=== PATIENT | female | born 1990 | race Caucasian/White ===

== ENCOUNTER → 2018-06-29 | Outpatient (CLI) | payer OTHER ==
--- NOTE | 2018-06-29 11:36 | XR ---
EXAMINATION TYPE: XR wrist complete RT DATE OF EXAM: 06/29/2018 COMPARISON: NONE HISTORY: 28-year-old female right wrist pain TECHNIQUE: 4 views FINDINGS: Mild positive ulnar variance is demonstrated. Radiocarpal and distal radial ulnar joint as well as th e midcarpal compartment appear intact. There seems to be some mild soft tissue swelling at the wrist. No acute fracture, subluxation, or dislocation seen. IMPRESSION: 1. Incidental mild positive ulnar variance. This can predispose some patients to TFCC injury. 2. Mild soft tissue swelling about the wrist. No acute osseous abnormality seen.
== END ==
LOC: RADXRMAIN 11:07
PROVIDERS: ATTEND Emergency Medicine
DX: M79.89 Other specified soft tissue disorders (principal)

== ENCOUNTER → 2018-07-14 | Outpatient (CLI) | payer OTHER ==
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
== END ==
LOC: RADXRMAIN 14:23
PROVIDERS: ATTEND Emergency Medicine
DX: M65.831 Other synovitis and tenosynovitis, right forearm (principal); R20.9 Unspecified disturbances of skin sensation

== ENCOUNTER → 2018-09-18 | Outpatient (CLI) | payer OTHER ==
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
== END | disposition home or self-care (01) ==
LOC: RADXRMAIN 11:52
PROVIDERS: ATTEND Emergency Medicine
DX: S46.911A Strain of unspecified muscle, fascia and tendon at shoulder and upper arm level, right arm, initial encounter (principal)

== ENCOUNTER → 2018-09-24 | Outpatient (CLI) | payer OTHER ==
--- NOTE | 2018-09-28 10:07 | XR ---
EXAMINATION TYPE: XR cervical spine comp DATE OF EXAM: 09/24/2018 TECHNIQUE: Frontal, lateral, oblique, swimmers, and open mouth view of the cervical spine are obtaine d. HISTORY: M54.2 Neck pain COMPARISON: None FINDINGS: Mild disc space narrowing in marginal osteophytes at C4-5. Asymmetric mild right-sided minda ral foraminal narrowing at C4-5 and C5-6. The cervical spine is visualized in its entirety from C1 th ru the top of T1 level, it is satisfactory in alignment without evidence of acute fracture or disloca tion. The pre-vertebral soft tissue appears within normal limits. The C1-C2 articulation is within normal limits on the open mouth view. IMPRESSION: No acute fracture or dislocation. Cervical spondylosis at C4-5 and C5-6, greater on the right.
== END | disposition home or self-care (01) ==
LOC: RADXRMAIN 11:09
PROVIDERS: ATTEND Emergency Medicine
DX: M47.812 Spondylosis without myelopathy or radiculopathy, cervical region (principal)
CPT/HCPCS: 72050

== ENCOUNTER 2019-03-16 09:55 | Emergency (ER) | payer OTHER, BC ==
[2019-03-16 10:31] VITALS: RESP 18; TEMP 98.9
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
--- NOTE | 2019-03-16 13:21 | XR ---
EXAMINATION TYPE: XR lumbosacral spine min 4V DATE OF EXAM: 03/16/2019 CLINICAL HISTORY: pain COMPARISON: NONE TECHNIQUE: Frontal, lateral, and oblique images of the lumbar spine are obtained. FINDINGS: There are 5 lumbar type vertebral bodies identified. The lumbar spine shows satisfactory alignment without evidence of acute fracture or dislocation. Vertebral body heights are within normal limits. Disc spaces are well preserved. The overlying soft tissue appears unremarkable. IMPRESSION: No acute fracture or dislocation is seen in the lumbar spine.ICD 10 NO FRACTURE, INITIAL EVALUATION
[2019-03-16 13:37] VITALS: BP 131/71; PULSE 67
[2019-03-16] MEDS ORDERED: IBUPROFEN 600 MG TAB PO STA (13:47)
== END 2019-03-16 14:00 | disposition home or self-care (01) ==
LOC: EC 09:55
DX: S39.012A Strain of muscle, fascia and tendon of lower back, initial encounter (principal); Z88.1 Allergy status to other antibiotic agents; V49.9XXA Car occupant (driver) (passenger) injured in unspecified traffic accident, initial encounter; Y92.410 Unspecified street and highway as the place of occurrence of the external cause
CPT/HCPCS: 72110; 72125; 99284

== ENCOUNTER 2019-11-17 09:32 | Emergency (ER) | payer BC ==
[2019-11-17 09:44] VITALS: RESP 16
[2019-11-17] MEDS ORDERED: SODIUM CHLORIDE 0.9% 2,000 ML IV STA (10:11)
[2019-11-17] MEDS ORDERED: METOCLOPRAMIDE 5 MG/ML 2 ML VIAL IVP STA (10:11)
[2019-11-17] MEDS ORDERED: diphenhydrAMINE 50 MG/ML 1 ML VIAL IVP STA (10:11)
--- NOTE | 2019-11-17 10:15 | ED ---
Nausea/Vomiting/Diarrhea HPI - General Chief complaint: Nausea/Vomiting/Diarrhea Stated complaint: PREG DEHYDRATION Time Seen by Provider: 11/17/19 10:01 Source: patient, family, RN notes reviewed, old records reviewed Mode of arrival: wheelchair Limitations: no limitations - History of Present Illness Initial comments: Regina is a female 29 years old and presents emergency department today for concerns for nausea and vomiting dehydration dizziness. Patient reports that she's been having these episodes increasingly for the past few days. She states that she believes she is proximal 6 weeks based off last menstrual period Patient states that she's had no chest pain shortness of breath. Denies any vaginal bleeding or discharge. She does complain of dysuria. She states that she has no back pain or localized abdominal pain at this time. Her ASSOCIATE TEACHER is Dr. Elizondo. - Related Data Home Medications Medication Instructions Recorded Confirmed Escitalopram [Lexapro] 10 mg PO HS 11/17/19 11/17/19 Folate 1 tab PO HS 11/17/19 11/17/19 Omeprazole 20 mg PO HS 11/17/19 11/17/19 Pnv,Calcium 72/Iron/Folic Acid 1 tab PO HS 11/17/19 11/17/19 [ Plus Tablet] Previous Rx's Medication Instructions Recorded Cephalexin [Keflex] 500 mg PO Q6HR 3 Days #12 cap 11/17/19 Metoclopramide [Reglan] 10 mg PO ACHS #12 tab 11/17/19 Allergies Allergy/AdvReac Type Severity Reaction Status Date / Time azithromycin Allergy Nausea & Verified 11/17/19 11:39 Vomiting Review of Systems ROS Statement: Those systems with pertinent positive or pertinent negative responses have been documented in the HPI. ROS Other: All systems not noted in ROS Statement are negative. Past Medical History Additional Past Medical History / Comment(s): migraines anxiety and depression History of Any Multi-Drug Resistant Organisms: None Reported Past Surgical History: No Surgical Hx Reported Past Psychological History: Anxiety, Depression Smoking Status: Never smoker Past Alcohol Use History: None Reported Past Drug Use History: None Reported General Exam - General Exam Comments Initial Comments: 29-year-old female. Alert and oriented. No distress. Limitations: no limitations General appearance: alert, in no apparent distress Head exam: Present: atraumatic, normocephalic, normal inspection Eye exam: Present: normal appearance, PERRL, EOMI. Absent: scleral icterus, conjunctival injection, periorbital swelling ENT exam: Present: normal exam, mucous membranes moist Neck exam: Present: normal inspection. Absent: tenderness, meningismus, lymphadenopathy Respiratory exam: Present: normal lung sounds bilaterally. Absent: respiratory distress, wheezes, rales, rhonchi, stridor Cardiovascular Exam: Present: regular rate, normal rhythm, normal heart sounds. Absent: systolic murmur, diastolic murmur, rubs, gallop, clicks GI/Abdominal exam: Present: soft, normal bowel sounds. Absent: distended, tenderness, guarding, rebound, rigid Extremities exam: Present: normal inspection, full ROM, normal capillary refill. Absent: tenderness, pedal edema, joint swelling, calf tenderness Back exam: Present: normal inspection Neurological exam: Present: alert, oriented X3, CN II-XII intact Psychiatric exam: Present: normal affect, normal mood Skin exam: Present: warm, dry, intact, normal color. Absent: rash Course Vital Signs 11/17/19 09:42 Temperature 98.9 F Pulse Rate 70 Respiratory 16 Rate Blood Pressure 108/80 O2 Sat by Pulse 99 Oximetry Medical Decision Making - Medical Decision Making 29 -year-old female presents today for nausea and vomiting. Early and complains of dysuria. She has a some evidence of intrauterine measuring 5 weeks. Labs are reviewed and unremarkable. Patient feels better after 2 L bolus. We'll discharge Patient with close PCP follow-up. - Lab Data Result diagrams: 11/17/19 10:21 11/17/19 10:21 Lab Results 11/17/19 11/17/19 11/17/19 Range/Units 10:21 10:21 10:21 WBC 11.8 H (3.8-10.6) k/uL RBC 4.74 (3.80-5.40) m/uL Hgb 13.9 (11.4-16.0) gm/dL Hct 42.8 (34.0-46.0) % MCV 90.3 (80.0-100.0) fL MCH 29.3 (25.0-35.0) pg MCHC 32.5 (31.0-37.0) g/dL RDW 13.3 (11.5-15.5) % Plt Count 309 (150-450) k/uL Neutrophils % 81 % Lymphocytes % 13 % Monocytes % 4 % Eosinophils % 1 % Basophils % 0 % Neutrophils # 9.5 H (1.3-7.7) k/uL Lymphocytes # 1.5 (1.0-4.8) k/uL Monocytes # 0.5 (0-1.0) k/uL Eosinophils # 0.1 (0-0.7) k/uL Basophils # 0.0 (0-0.2) k/uL Sodium 136 L (137-145) mmol/L Potassium 4.4 (3.5-5.1) mmol/L Chloride 105 (98-107) mmol/L Carbon Dioxide 20 L (22-30) mmol/L Anion Gap 11 mmol/L BUN 12 (7-17) mg/dL Creatinine 0.84 (0.52-1.04) mg/dL Est GFR (CKD-EPI)AfAm >90 (>60 ml/min/1.73 sqM) Est GFR (CKD-EPI)NonAf >90 (>60 ml/min/1.73 sqM) Glucose 94 (74-99) mg/dL Calcium 9.6 (8.4-10.2) mg/dL Total Bilirubin 0.9 (0.2-1.3) mg/dL AST 79 H (14-36) U/L ALT 136 H (4-34) U/L Alkaline Phosphatase 82 (38-126) U/L Total Protein 7.7 (6.3-8.2) g/dL Albumin 4.5 (3.5-5.0) g/dL Lipase 31 (23-300) U/L HCG, Quant 43255.4 mIU/mL Urine Color Yellow Urine Appearance Cloudy H (Clear) Urine pH 6.0 (5.0-8.0) Ur Specific [place] 1.026 (1.001-1.035) Urine Protein 1+ H (Negative) Urine Glucose (UA) Negative (Negative) Urine Ketones 1+ H (Negative) Urine Blood Negative (Negative) Urine Nitrite Negative (Negative) Urine Bilirubin Negative (Negative) Urine Urobilinogen <2.0 (<2.0) mg/dL Ur Leukocyte Esterase Small H (Negative) Urine WBC 7 H (0-5) /hpf Ur Squamous Epith Cells 1 (0-4) /hpf Urine Bacteria Rare H (None) /hpf Urine Mucus Many H (None) /hpf Urine HCG, Qual (Not Detectd) Blood Type Blood Type Recheck Bld Type Recheck Status 11/17/19 11/17/19 Range/Units 10:21 10:21 WBC (3.8-10.6) k/uL RBC (3.80-5.40) m/uL Hgb (11.4-16.0) gm/dL Hct (34.0-46.0) % MCV (80.0-100.0) fL MCH (25.0-35.0) pg MCHC (31.0-37.0) g/dL RDW (11.5-15.5) % Plt Count (150-450) k/uL Neutrophils % % Lymphocytes % % Monocytes % % Eosinophils % % Basophils % % Neutrophils # (1.3-7.7) k/uL Lymphocytes # (1.0-4.8) k/uL Monocytes # (0-1.0) k/uL Eosinophils # (0-0.7) k/uL Basophils # (0-0.2) k/uL Sodium (137-145) mmol/L Potassium (3.5-5.1) mmol/L Chloride (98-107) mmol/L Carbon Dioxide (22-30) mmol/L Anion Gap mmol/L BUN (7-17) mg/dL Creatinine (0.52-1.04) mg/dL Est GFR (CKD-EPI)AfAm (>60 ml/min/1.73 sqM) Est GFR (CKD-EPI)NonAf (>60 ml/min/1.73 sqM) Glucose (74-99) mg/dL Calcium (8.4-10.2) mg/dL Total Bilirubin (0.2-1.3) mg/dL AST (14-36) U/L ALT (4-34) U/L Alkaline Phosphatase (38-126) U/L Total Protein (6.3-8.2) g/dL Albumin (3.5-5.0) g/dL Lipase (23-300) U/L HCG, Quant mIU/mL Urine Color Urine Appearance (Clear) Urine pH (5.0-8.0) Ur Specific [place] (1.001-1.035) Urine Protein (Negative) Urine Glucose (UA) (Negative) Urine Ketones (Negative) Urine Blood (Negative) Urine Nitrite (Negative) Urine Bilirubin (Negative) Urine Urobilinogen (<2.0) mg/dL Ur Leukocyte Esterase (Negative) Urine WBC (0-5) /hpf Ur Squamous Epith Cells (0-4) /hpf Urine Bacteria (None) /hpf Urine Mucus (None) /hpf Urine HCG, Qual Detected (Not Detectd) Blood Type O Positive Blood Type Recheck No Previous Record Bld Type Recheck Status [facility] ONLY - Radiology Data Radiology results: report reviewed Live single intrauterine gestation confirmed with crown-rump length measuring 0.2 cm with 5 week 5-day-old fetus. Disposition Clinical Impression: Nausea & vomiting, Asymptomatic bacteriuria during Disposition: HOME SELF-CARE Condition: Good Instructions (If sedation given, give patient instructions): Acute Nausea and Vomiting (ED) Additional Instructions: Please use medication as discussed. Please follow up with family doctor if symptoms have not improved over the next two days. Please return to the emergency room if your symptoms increase or worsen or for any other concerns. Prescriptions: Cephalexin [Keflex] 500 mg PO Q6HR 3 Days #12 cap Metoclopramide [Reglan] 10 mg PO ACHS #12 tab Is patient prescribed a controlled substance at d/c from ED?: No Referrals: Chris Thao MD [Primary Care Provider] - 1-2 days Time of Disposition: 12:12
[2019-11-17 10:48] LABS: Basophils % (A) 0 %; Eosinophils # (A) 0.1 k/uL (0-0.7); Eosinophils % (A) 1 %; HCT 42.8 % (34.0-46.0); HGB 13.9 gm/dL (11.4-16.0); Lymphocytes # (A) 1.5 k/uL (1.0-4.8); Lymphocytes % (A) 13 %; MCH 29.3 pg (25.0-35.0); MCHC 32.5 g/dL (31.0-37.0); MCV 90.3 fL (80.0-100.0); Monocytes # (A) 0.5 k/uL (0-1.0); Monocytes % (A) 4 %; Neutrophils # (A) 9.5 k/uL (1.3-7.7); Neutrophils % (A) 81 %; Platelet Count 309 k/uL (150-450); RBC 4.74 m/uL (3.80-5.40); RDW 13.3 % (11.5-15.5); WBC 11.8 k/uL (3.8-10.6)
[2019-11-17 10:50] LABS: Appearance,Urine Cloudy (Clear); Bacteria,Urine Rare /hpf; Bilirubin,Urine Negative (Negative); Blood,Urine Negative (Negative); Color,Urine Yellow; Glucose,Urine (UA) Negative (Negative); Ketones,Urine 1+ (Negative); Leukocyte Esterase,Urine Small (Negative); Mucus,Urine Many /hpf; Nitrite,Urine Negative (Negative); Protein,Urine 1+ (Negative); Specific Gravity,Urine 1.026 (1.001-1.035); Squamous Epithelial Cell,Urine 1 /hpf (0-4); Urobilinogen,Urine <2.0 mg/dL (<2.0); WBC,Urine 7 /hpf (0-5)
[2019-11-17 10:56] LABS: ALT 136 U/L (4-34); AST 79 U/L (14-36); African American GFR (CKD) >90 (>60 ml/min/1.73 sqM); Albumin 4.5 g/dL (3.5-5.0); Alkaline Phosphatase 82 U/L (38-126); Anion Gap 11 mmol/L; Blood Urea Nitrogen 12 mg/dL (7-17); Calcium 9.6 mg/dL (8.4-10.2); Carbon Dioxide 20 mmol/L (22-30); Chloride 105 mmol/L (98-107); Glucose 94 mg/dL (74-99); Non-African American GFR(CKD) >90 (>60 ml/min/1.73 sqM); Potassium 4.4 mmol/L (3.5-5.1); Sodium 136 mmol/L (137-145); Total Bilirubin 0.9 mg/dL (0.2-1.3); Total Protein 7.7 g/dL (6.3-8.2)
--- NOTE | 2019-11-17 11:30 | US ---
EXAMINATION TYPE: Transabdominal DATE OF EXAM: 11/17/2019 11:20 AM COMPARISON: NONE CLINICAL HISTORY: early preg, nausea, vom. Positive beta-hCG test with pain. EXAM PERFORMED: Transvaginal (TV) and Transabdominal (TA) EXAM MEASUREMENTS: GESTATIONAL AGE / DATING Physician Established: Not yet established Dates by LMP: not applicable Dates by First Scan: No previous this is first scan Dates by Current Scan for: (5 weeks/5 days) EDC: 07/15/19 MATERNAL ANATOMY Uterus: 7.9 x 4.8 x 4.9cm Right Ovary: 3.6 x 2.8 x 2.3cm Left Ovary: obscured by overlying bowel gas Post CDS / Adnexa: wnl Presence of free fluid: no Presence of corpus luteal cyst: 1.9 x 1.4 x 1.5cm Presence of subchorionic bleed: no GESTATION / SURVEY CRL: 0.2cm (5 weeks/ 5 days) Yolk Sac (normal less than 6mm): 2mm Heart Rate: 120 bpm Rhythm: Normal IUP: Viable IUP Date of LMP: 08/15/19 Beta HcG (if available): Not available at this time Single live intrauterine gestation is confirmed as gestational sac, yolk sac, and pole are pres ent. No free fluid in pelvic cul-de-sac. Right ovary identified. Left ovary not clearly seen. Within the right ovary there is a 1.5 cm isoecho ic oval lesion with vascularity suspicious for corpus luteal cyst. No concerning extra ovarian adnexa l masses. IMPRESSION: Early single live intrauterine gestation confirmed, mean crown-rump length is 0.2 cm corresponding to 5 week 5 day old fetus
[2019-11-17 11:54] LABS: HCG,Quantitative Serum 32586.4 mIU/mL
[2019-11-17 12:37] VITALS: BP 113/69; PULSE 63; TEMP 98.6
== END 2019-11-17 12:41 | disposition home or self-care (01) ==
LOC: EC 09:32
DX: O21.9 Vomiting of pregnancy, unspecified (principal); O23.91 Unspecified genitourinary tract infection in pregnancy, first trimester; O99.341 Other mental disorders complicating pregnancy, first trimester; F32.9 Major depressive disorder, single episode, unspecified; F41.9 Anxiety disorder, unspecified; Z79.899 Other long term (current) drug therapy; Z3A.01 Less than 8 weeks gestation of pregnancy; Z88.1 Allergy status to other antibiotic agents
CPT/HCPCS: 36415; 86900; 86901; 80053; 83690; 85025; 81001; 81025; 84702; 76801; 76817; 99285; 96374; 96375; 96361 ×2; J1200; J2765

== ENCOUNTER → 2019-12-31 | Outpatient (CLI) | payer BC ==
[2019-12-31 14:55] LABS: HCT 40.7 % (34.0-46.0); HGB 13.4 gm/dL (11.4-16.0); MCH 30.5 pg (25.0-35.0); MCV 92.4 fL (80.0-100.0); Mean Platelet Volume 7.3; Platelet Count 266 k/uL (150-450); RBC 4.41 m/uL (3.80-5.40); WBC 12.6 k/uL (3.8-10.6)
[2020-01-01 03:24] LABS: Hemoglobin A1C 5.4 % (4.0-6.0)
[2020-01-01 04:57] LABS: Hepatitis B Surface Antigen Non-Reactive (Non-Reactive)
[2020-01-01 08:23] LABS: HIV 2 AB Non-Reactive (Non-Reactive); HIV AB P24 Non-Reactive (Non-Reactive); HIV P24 AG Non-Reactive (Non-Reactive)
== END | disposition home or self-care (01) ==
LOC: LABWHC1 13:31
PROVIDERS: ATTEND Obstetrics & Gynecology Obstetrics
DX: Z34.01 Encounter for supervision of normal first pregnancy, first trimester (principal)
CPT/HCPCS: 36415; 82950; 83036; 85027; 86762; 86780; 86850; 86900; 86901; 87340; 87390

== ENCOUNTER → 2020-01-11 | Outpatient (CLI) | payer BC | END | disposition home or self-care (01) | LOC: LABWHC1 16:21 | PROVIDERS: ATTEND Obstetrics & Gynecology Obstetrics | DX: Z20.828 Contact with and (suspected) exposure to other viral communicable diseases (principal); Z3A.13 13 weeks gestation of pregnancy | CPT/HCPCS: U0003; C9803 ==

== ENCOUNTER 2020-02-04 18:42 | Outpatient (CLI) | payer BC ==
[2020-02-04] MEDS: LACTATED RINGERS 1,000 ML IV SCH ×3 (19:27→20:34)
[2020-02-04 19:31] LABS: Appearance,Urine Cloudy (Clear); Bacteria,Urine Occasional /hpf; Bilirubin,Urine Negative (Negative); Blood,Urine Negative (Negative); Color,Urine Dark Yellow; Glucose,Urine (UA) Negative (Negative); Hyaline Casts,Urine 3 /lpf (0-2); Ketones,Urine 4+ (Negative); Leukocyte Esterase,Urine Moderate (Negative); Mucus,Urine Many /hpf; Nitrite,Urine Negative (Negative); Protein,Urine 2+ (Negative); RBC,Urine 5 /hpf (0-5); Specific Gravity,Urine 1.033 (1.001-1.035); Squamous Epithelial Cell,Urine 3 /hpf (0-4); WBC,Urine 14 /hpf (0-5)
[2020-02-04 21:21] VITALS: BP 126/64; PULSE 72; RESP 16; TEMP 97.2
--- NOTE | 2020-04-01 10:27 | P.MSEPDOC ---
Presenting Problems - Arrival Data Date of Arrival on Unit: 02/04/20 Time of Arrival on Unit: 18:42 Mode of Transport: Ambulatory - Complaint OB-Reason for Admission/Chief Complaint: Hyperemesis Medical History - Information : 1 Para: 0 Term: 0 : 0 Abortions: Spontaneous or Elective: 0 Number of Living Children: 0 - Gestational Age Gestational Age by MOSES (wks/days): 16 Weeks and 6 Days Review of Systems - Review of Systems Constitutional: No problems Breast: No problems ENT: No problems Cardiovascular: No problems Respiratory: No problems Gastrointestinal: No problems Genitourinary: No problems Musculoskeletal: No problems Neurological: No problems Skin: No problems Vital Signs - Temperature Temperature: 97.2 F Temperature Source: Temporal Artery Scan - Pulse Pulse Oximetery Pulse Rate: 72 Pulse Assessment Method: Pulse Oximetry - Respirations Respiratory Rate: 16 Oxygen Delivery Method: Room Air O2 Sat by Pulse Oximetry: 99 - Blood Pressure Right Arm Blood Pressure: 126/64 Blood Pressure Mean: 84 Blood Pressure Source: Automatic Cuff Medical Screen Scoring (Pre) - Cervical Exam Dilation: Exam Deferred Effacement: Exam Deferred Membranes: Intact - Uterine Contractions Frequency: N/A Duration: N/A Intensity: N/A - Maternal Vital Signs Maternal Temperature: N/A Maternal Blood Pressure: N/A Signs of Preeclampsia: N/A Maternal Respirations: N/A - Assessment - Baby A Baseline FHR: 150 - Total Score - Baby A Total Score - Baby A: 0 - Total Score - Baby B Total Score - Baby B: 0 - Total Score - Baby C Total Score - Baby C: 0 - Level of Risk - Baby A Level of Risk - Baby A: Low (0-5) - Level of Risk - Baby B Level of Risk - Baby B: Low (0-5) - Level of Risk - Baby C Level of Risk - Baby C: Low (0-5) Physician Notification (Pre) - Physician Notified Physician Notified Date: 02/04/20 Physician Notified Time: 20:03 New Order Received: Yes - Notification Comment Comment: 1899 - RN spoke with Dr. Morales regarding patient's complaints. RN to send UA and. start IV and administer 2L of LR. If the UA is negative, pt may DC home per Dr. Morales. 2002-Dr. Lensmeyer called on cell, report given on U/A (2+protein, 4+ ketones, no. nitrates, moderate leukocytes, 14 WBC, occasional bacteria, and 3 epithelial). Pt is on. her 2nd bag of LR and starting to feel a little better already. Orders to give a 3rd bag. of LR and then pt can be discharged home as long as she is tolerating some oral fluids. Disposition - Disposition OB Disposition: Discharge to home Discharge Date: 02/04/20 Discharge Time: 21:10 I agree with the RN Medical Screening Exam: Yes Physician's MSE Comment: I have neither seen nor examined the patient. Case reviewed; plan agreed upon as documented in EMR&OBIX.: Yes Diagnosis: RELATED CONDITIONS, UNSPECIFIED, SECOND TRIMESTER
== END 2020-02-04 21:10 | disposition home or self-care (01) ==
LOC: FBPOP 18:42
PROVIDERS: ATTEND Obstetrics & Gynecology
DX: O26.92 Pregnancy related conditions, unspecified, second trimester (principal); Z3A.16 16 weeks gestation of pregnancy
CPT/HCPCS: 81001; 96360; 96361; 99214

== ENCOUNTER 2020-07-10 06:03 | Inpatient (IN) | payer BC ==
[2020-07-10] MEDS ORDERED: TERBUTALINE 1 MG/ML VIAL SQ PRN (06:29)
[2020-07-10] MEDS ORDERED: LIDOCAINE 0.5% (PF) 5 MG/ML (50 ML SDV) SQ PRN (06:29)
[2020-07-10] MEDS ORDERED: OXYTOCIN 10 UNIT/ML 1 ML VIAL IM PRN (06:29)
[2020-07-10] MEDS ORDERED: CARBOPROST TROMETHAMINE 250 MCG/ML 1 ML AMP IM PRN (06:29)
[2020-07-10] MEDS ORDERED: METHYLERGONOVINE 0.2 MG/ML 1 ML AMP IM PRN (06:29)
[2020-07-10] MEDS: LACTATED RINGERS 1,000 ML IV SCH ×5 (06:44→18:01)
[2020-07-10] MEDS ORDERED: OXYTOCIN 30 UNITS/500 ML NS 30 UNIT in SALINE 1 500ML.BAG IV SCH ×2 (06:45→18:00)
[2020-07-10 07:10] LABS: Basophils % (A) 0 %; Eosinophils # (A) 0.1 k/uL (0-0.7); Eosinophils % (A) 1 %; HCT 36.7 % (34.0-46.0); HGB 11.9 gm/dL (11.4-16.0); Lymphocytes # (A) 2.1 k/uL (1.0-4.8); Lymphocytes % (A) 19 %; MCH 29.6 pg (25.0-35.0); MCHC 32.4 g/dL (31.0-37.0); MCV 91.4 fL (80.0-100.0); Mean Platelet Volume 8.2; Monocytes # (A) 0.4 k/uL (0-1.0); Monocytes % (A) 4 %; Neutrophils # (A) 8.5 k/uL (1.3-7.7); Neutrophils % (A) 75 %; Platelet Count 267 k/uL (150-450); RBC 4.01 m/uL (3.80-5.40); RDW 14.6 % (11.5-15.5); WBC 11.4 k/uL (3.8-10.6)
[2020-07-10] MEDS ORDERED: fentaNYL (PF) 50 MCG/ML 5 ML AMP ONE (09:47)
[2020-07-10] MEDS ORDERED: ROPIVACAINE 5MG/ML 20ML VIAL ONE (09:47)
[2020-07-10] MEDS ORDERED: SODIUM CHLORIDE 0.9% 100 ML BAG ONE (09:47)
[2020-07-10] MEDS ORDERED: ePHEDrine SULFATE/0.9% NACL/PF 50 MG/5 ML SYRINGE IV ONE (09:47)
[2020-07-10] MEDS ORDERED: CITRIC ACID-SODIUM CITRATE 15 ML CUP PO ONE (16:57)
[2020-07-10] MEDS ORDERED: CHLOROPROCAINE 3% 30 MG/ML 20 ML VIAL ONE (17:06)
[2020-07-10] MEDS ORDERED: ONDANSETRON 4 MG/2 ML VIAL ONE (17:06)
[2020-07-10] MEDS ORDERED: MORPHINE SULFATE (PF) 0.3 MG/0.3 ML SYR ONE (17:06)
[2020-07-10] MEDS ORDERED: ZOLPIDEM 5 MG TAB PO PRN (17:52)
[2020-07-10] MEDS ORDERED: NALOXONE 0.4 MG/ML 1 ML VIAL IV PRN (17:52)
[2020-07-10] MEDS ORDERED: diphenhydrAMINE 25 MG CAP PO PRN (17:52)
[2020-07-10] MEDS ORDERED: METOCLOPRAMIDE 5 MG/ML 2 ML VIAL IVP PRN (17:52)
[2020-07-10] MEDS ORDERED: SIMETHICONE 80 MG CHEWABLE PO PRN (17:52)
[2020-07-10] MEDS ORDERED: diphenhydrAMINE 50 MG/ML 1 ML VIAL IVP PRN ×2 (17:52)
[2020-07-10] MEDS ORDERED: ONDANSETRON 4 MG/2 ML VIAL IVP PRN (17:52)
[2020-07-10] MEDS ORDERED: diphenhydrAMINE 50 MG CAP PO PRN (17:52)
--- NOTE | 2020-07-10 17:59 | P.OP ---
Date of Procedure: 07/10/20 Preoperative Diagnosis: IUP at 39 and 2/sevenths weeks, arrest of descent, meconium-stained fluid Postoperative Diagnosis: Same plus occiput posterior presentation Procedure(s) Performed: Primary low transverse section Anesthesia: epidural Surgeon: Esperanza Elizondo Processing Assistant #1: Mick Morales Estimated Blood Loss (ml): 783 IV fluids (ml): 1,000 Urine output (ml): 100 Pathology: other (Placenta) Condition: stable Disposition: observation Indications for Procedure: This is a 30-year-old 1 para 0 that presented to labor and delivery at 39-2/7 weeks for elective induction of labor. Patient was noted to be 2 placentae meters in the office and requested induction of labor. Patient was admitted Pitocin induction of labor was begun. Patient did move through labor eventually becoming complete inserted pushing. After proximally 1-1/2 hours of pushing no descent was noted. Patient was presumed to be in occiput posterior presentation in addition. Patient was counseled on secondary to arrest of descent and presentation. Patient stated understanding and was taken back to the operating suite. Operative Findings: Viable male delivered at 1720, weight of 7 lbs. 15 oz. with Apgars of 9 and 9 at one and 5 minutes respectively. Description of Procedure: Patient was taken back to the operating suite where epidural anesthesia was found be adequate. She was then prepped and draped in normal sterile fashion in the dorsal supine position. A Pfannenstiel skin incision was made the scalpel and carried through to the underlying layer of fascia. The fascia was then incised in the midline and the incision was extended laterally. The superior aspect the fascial incision was then grasped kyle clamps, elevated and underlying rectus muscles dissected off sharply. Attention was then turned the inferior aspect of the fascial incision which was grasped kyle clamps, elevated and underlying rectus muscles dissected off sharply. The rectus muscles were in the midline the peritoneum was identified and entered. This incision was then extended superiorly and inferiorly with good visualization the bladder. The bladder blade was then inserted into the pelvis. The vesicouterine peritoneum was identified and a bladder flap was created using sharp and blunt dissection. Hysterotomy incision was made the scalpel meconium, thick stained fluid was appreciated. The infant was noted to be low in the pelvis and was delivered in the usual fashion. The umbilical cord was doubly clamped and cut and the infant was handed off to awaiting RN. The placenta was then delivered manually and the uterus was cleared of all clots and debris. The uterus was then delivered from the abdomen. The uterine incision was closed with 0 Vicryl in a running locked fashion. A second imbricating suture was then performed. Bleeding was noted on the right-hand side of the uterine incision therefore 2 [id number] sutures were used to obtain hemostasis. The gutters were cleared of all clots and debris and the uterus returned to the abdomen. The hysterotomy incision was inspected hemostasis was appreciated and Surgicel was applied across the incision. The rectus muscles were loosely reapproximated and the rectus muscles were inspected hemostatic. The fascia was then closed with 0 Vicryl in a running fashion from one lateral edge the midline and the other lateral edge the midline. The subcutaneous tissue was irrigated found to be hemostatic and closed with 3-0 Vicryl. The skin was then closed with 4-0 Vicryl in a subarticular fashion. Steri-Strips and sterile dressings were applied. All counts were noted to be correct 2 at the end of the procedure. Patient and infant tolerated delivery well and are resting comfortably.
[2020-07-10] MEDS ORDERED: ACETAMINOPHEN IV (For NPO) 1,000 MG in EMPTY BAG 1 BAG IVPB PRN (18:00)
--- NOTE | 2020-07-10 18:00 | P.HPOB ---
History of Present Illness H&P Date: 07/10/20 Chief Complaint: IUP at 39 This is a 30-year-old 1 para 0 at 39 weeks of that presents for induction of labor. Patient has been receiving routine care with myself which has been essentially uncomplicated. Patient did contract COVID-19 during the . She is been receiving growth ultrasounds along with weekly testing since 32 weeks. Patient has noted contractions through the weekend. Patient denied loss of fluid or vaginal bleeding. Patient does note good movement. On bloodwork this patient started of O+, rubella status is nonimmune, hep [place] surface engine negative, HIV negative, RPR nonreactive, GBS is negative. Review of Systems Constitutional: Denies chills, Denies fatigue, Denies fever Ears, nose, mouth and throat: Denies headache Cardiovascular: Reports leg edema Respiratory: Denies dyspnea Gastrointestinal: Denies constipation, Denies diarrhea, Denies nausea, Denies vomiting Genitourinary: Reports Past Medical History Additional Past Medical History / Comment(s): migraines anxiety and depression History of Any Multi-Drug Resistant Organisms: None Reported Past Surgical History: No Surgical Hx Reported Past Anesthesia/Blood Transfusion Reactions: No Reported Reaction Past Psychological History: Anxiety, Depression Smoking Status: Never smoker Past Alcohol Use History: None Reported Past Drug Use History: None Reported - Past Family History Mother History Unknown: Yes Medications and Allergies Home Medications Medication Instructions Recorded Confirmed Type Escitalopram [Lexapro] 10 mg PO HS 11/17/19 07/10/20 History Omeprazole 20 mg PO HS 11/17/19 07/10/20 History Pnv,Calcium 72/Iron/Folic Acid 1 tab PO HS 11/17/19 07/10/20 History [ Plus Tablet] Aspirin 81 mg PO DAILY 02/04/20 07/10/20 History Allergies Allergy/AdvReac Type Severity Reaction Status Date / Time No Known Allergies Allergy Verified 07/10/20 06:28 Exam Osteopathic Statement: *. No significant issues noted on an osteopathic structural exam other than those noted in the History and Physical/Consult. 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 heart tones returned be category 1 and she is chris irregularly. Results Result Diagrams: 07/10/20 06:35 Abnormal Lab Results - Last 24 Hours (Table) 07/10/20 Range/Units 06:35 WBC 11.4 H (3.8-10.6) k/uL Neutrophils # 8.5 H (1.3-7.7) k/uL Assessment and Plan (1) Term Current Visit: Yes Status: Acute Code(s): Z34.90 - ENCNTR FOR SUPRVSN OF NORMAL , UNSP, UNSP TRIMESTER SNOMED Code(s): 18321888 (2) Thick meconium stained amniotic fluid Current Visit: Yes Status: Acute Code(s): P96.83 - MECONIUM STAINING S NOMED Code(s): 720689976 Plan: 30-year-old 1 para 0 at 39 weeks of presents for induction of labor. Patient was begun on Pitocin induction of labor per hospital protocol. Options for analgesia are discussed with the patient. Meconium-stained fluid on amniotomy is discussed and questions are answered. Anticipate spontaneous vaginal delivery later today.
[2020-07-10] MEDS: SENNOSIDES-DOCUSATE SODIUM 1 EACH TAB PO SCH (21:36)
[2020-07-11] MEDS ORDERED: IBUPROFEN IV 800 MG in SODIUM CHLORIDE 0.9% 250 ML IV PRN ×2
[2020-07-11] MEDS: ESCITALOPRAM 10 MG TAB PO SCH ×2 (00:58→21:08)
[2020-07-11] MEDS: PRENATAL VIT-IRON-FOLIC ACID 1 EACH CAP PO SCH ×2 (00:58→21:08)
[2020-07-11] MEDS: ACETAMINOPHEN TAB 500 MG TAB PO SCH ×5 (00:59→23:37)
[2020-07-11] MEDS: IBUPROFEN 600 MG TAB PO SCH ×5 (02:05→21:01)
[2020-07-11 06:41] LABS: Basophils % (A) 0 %; Eosinophils % (A) 0 %; HCT 30.5 % (34.0-46.0); HGB 10.5 gm/dL (11.4-16.0); Lymphocytes # (A) 1.4 k/uL (1.0-4.8); Lymphocytes % (A) 10 %; MCH 31.3 pg (25.0-35.0); MCHC 34.3 g/dL (31.0-37.0); MCV 91.2 fL (80.0-100.0); Mean Platelet Volume 8.8; Monocytes # (A) 0.6 k/uL (0-1.0); Monocytes % (A) 4 %; Neutrophils # (A) 11.6 k/uL (1.3-7.7); Neutrophils % (A) 85 %; Platelet Count 209 k/uL (150-450); RBC 3.35 m/uL (3.80-5.40); RDW 14.2 % (11.5-15.5); WBC 13.7 k/uL (3.8-10.6)
[2020-07-11] MEDS: LACTATED RINGERS 1,000 ML IV SCH (07:23)
--- NOTE | 2020-07-11 07:40 | P.PNOBGPC ---
Subjective - Subjective Principal diagnosis: POD 1 LTCS Interval history: Patient did well overnight. She is ambulating without difficulty. She is tolerating clear liquids without nausea or vomiting. We are awaiting spontaneous void as the catheter was removed around 4:30 this morning. Her lochia is minimal. She is breast-feeding without difficulty. She states her pain is moderately controlled. Patient reports: Reports appetite normal, Reports pain well controlled, Reports ambulating normally [place]: doing well, nursing well Objective - Vital Signs Latest vital signs: Vital Signs Temp Pulse Resp BP Pulse Ox 07/11/20 03:58 98.3 F 86 16 139/84 97 07/11/20 00:00 98.6 F 66 16 133/75 97 07/10/20 20:00 97.9 F 70 16 144/70 98 07/10/20 19:53 97.9 F 70 16 144/70 98 07/10/20 19:23 69 16 137/69 98 07/10/20 18:53 77 16 157/87 07/10/20 18:38 70 16 153/85 99 07/10/20 18:23 74 16 124/60 99 07/10/20 18:08 74 16 140/78 98 07/10/20 17:53 97.7 F 75 16 120/64 97 Intake and Output 07/10/20 07/11/20 07/11/20 22:59 06:59 14:59 Intake Total 10.833 Output Total 400 1350 Balance -389.167 -1350 Intake: Intake, IV Titration 10.833 Amount Oxytocin 30 Units/500 ml 10.833 Ns 30 unit In Saline 1 500ml.bag @ Per Protocol IV .Q0M [facility] Rx#:[id number] Output: Urine 400 1350 Uretheral ([place]) 450 Other: Voiding Method Indwelling Catheter # Voids 0 - Exam Extremities: Present: normal, edema Abdomen: Present: normal appearance, soft Incision: Present: normal, dry, intact Uterus: Present: normal, firm - Labs Labs: Abnormal Lab Results - Last 24 Hours (Table) 07/11/20 Range/Units 06:24 WBC 13.7 H (3.8-10.6) k/uL RBC 3.35 L (3.80-5.40) m/uL Hgb 10.5 L (11.4-16.0) gm/dL Hct 30.5 L (34.0-46.0) % Neutrophils # 11.6 H (1.3-7.7) k/uL Assessment and Plan (1) Term Current Visit: Yes Status: Acute Code(s): Z34.90 - ENCNTR FOR SUPRVSN OF NORMAL , UNSP, UNSP TRIMESTER SNOMED Code(s): 12614281 (2) Thick meconium stained amniotic fluid Current Visit: Yes Status: Acute Code(s): P96.83 - MECONIUM STAINING SNOMED Code(s): 947641470 (3) S/P section Current Visit: Yes Status: Acute Code(s): Z98.891 - HISTORY OF UTERINE SCAR FROM PREVIOUS SURGERY SNOMED Code(s): 665806067 (4) Arrest of descent, delivered, current hospitalization Current Visit: Yes Status: Acute Code(s): O62.1 - SECONDARY UTERINE INERTIA SNOMED Code(s): 66094814 Plan: Patient is doing well postoperatively, will await spontaneous void this morning. Advance diet to regular. Encourage increased ambulation. Continue routine postoperative care.
[2020-07-11] MEDS: SENNOSIDES-DOCUSATE SODIUM 1 EACH TAB PO SCH ×2 (07:56→21:01)
--- NOTE | 2020-07-11 09:48 | P.PN ---
Progress Note - Text Progress Note Date: 07/11/20 Patient seen at 0630 am 30 y/o POD #1 C/S under SAB with intrathecal Duramorph for post-operative pain management. Patient happy with anesthetic management. Mild itching which is tolerable and resolving. Incision pain 3-4/10 but decreased to 1/10 with po Motrin Patient denies any back pain, lower extremity numbness/paresthesias, nausea/vomitting, afebrile, no lower extremity weakness. To be discharged to home To follow up as indicated
[2020-07-11] MEDS ORDERED: MEASLES-MUMPS-RUBELLA VACC/PF 12,500 UNIT/0.5 ML VIAL SQ ONE (19:46)
[2020-07-12] MEDS: IBUPROFEN 600 MG TAB PO SCH ×2 (04:10→14:29)
[2020-07-12] MEDS: ACETAMINOPHEN TAB 500 MG TAB PO SCH ×2 (05:13→08:56)
[2020-07-12 08:41] VITALS: RESP 20
--- NOTE | 2020-07-12 08:42 | P.DS ---
Providers Date of admission: 07/10/20 06:03 Expected date of discharge: 07/12/20 Attending physician: Esperanza Elizondo Primary care physician: Stated None - Discharge Diagnosis(es) (1) Term Current Visit: Yes Status: Acute (2) Thick meconium stained amniotic fluid Current Visit: Yes Status: Acute (3) S/P section Current Visit: Yes Status: Acute (4) Arrest of descent, delivered, current hospitalization Current Visit: Yes Status: Acute Hospital Course: This is a 30-year-old that presented to labor and delivery at 39-2/7 weeks for scheduled elective induction of labor. Patient was admitted to labor and delivery and Pitocin induction of labor was begun. Upon amniotomy meconium- stained fluid was appreciated. Patient did progress through labor eventually requesting epidural placement. Epidural was placed without difficulty. Patient did progress to complete and began pushing. Patient pushed for approximately one half hours with no descent of the head past -1 station. At this point decision was made to proceed with primary secondary to arrest of descent. Patient was taken back to the operating suite where liveborn male was delivered at 1720, weight of 7 lbs. 15 oz. with Apgars of 99 at one and 5 minutes respectively. Infant did well postdelivery. Patient's postoperative course has been uneventful. On this postoperative day #2 she is ambulatory and voiding without difficulty. She states her pain is well-controlled. She is tolerating a regular diet without nausea or vomiting. She denies concerns and would like discharge home if possible. Patient Condition at Discharge: Good Plan - Discharge Summary New Discharge Prescriptions: No Action Pnv,Calcium 72/Iron/Folic Acid [ Plus Tablet] 1 tab PO HS Omeprazole 20 mg PO HS Escitalopram [Lexapro] 10 mg PO HS Aspirin 81 mg PO DAILY Discharge Medication List Escitalopram [Lexapro] 10 mg PO HS 11/17/19 [History] Omeprazole 20 mg PO HS 11/17/19 [History] Pnv,Calcium 72/Iron/Folic Acid [ Plus Tablet] 1 tab PO HS 11/17/19 [History] Aspirin 81 mg PO DAILY 02/04/20 [History] Follow up Appointment(s)/Referral(s): Esperanza Elizondo DO [Doctor of Osteopathic Medicine] - 2 Weeks Patient Instructions/Handouts: (DC), (GEN) Discharge Disposition: HOME SELF-CARE
[2020-07-12] MEDS: SENNOSIDES-DOCUSATE SODIUM 1 EACH TAB PO SCH (08:56)
[2020-07-12 11:26] VITALS: BP 123/85; PULSE 76; TEMP 99
== END 2020-07-12 15:15 | disposition home or self-care (01) | DRG 788 ==
LOC: 4FBP 06:03
PROVIDERS: ADMIT Obstetrics & Gynecology Obstetrics; ATTEND Obstetrics & Gynecology Obstetrics
PROC: 10D00Z1 Extraction of Products of Conception, Low, Open Approach (ICD-10-PCS; principal; 2020-07-10 17:00)
DX: O62.1 Secondary uterine inertia (principal); O77.0 Labor and delivery complicated by meconium in amniotic fluid; Z37.0 Single live birth; Z3A.39 39 weeks gestation of pregnancy; Z79.82 Long term (current) use of aspirin
CPT/HCPCS: 85025; 86850; 86900; 86901; 88307; 90707

== ENCOUNTER 2021-02-28 18:18 | Emergency (ER) | payer BC ==
[2021-02-28 19:36] VITALS: BP 141/80; PULSE 70; RESP 22; TEMP 98.2
[2021-02-28 20:14] LABS: Appearance,Urine Cloudy (Clear); Bacteria,Urine Rare /hpf; Bilirubin,Urine Negative (Negative); Blood,Urine Moderate (Negative); Color,Urine Yellow; Glucose,Urine (UA) Negative (Negative); Ketones,Urine 1+ (Negative); Leukocyte Esterase,Urine Small (Negative); Mucus,Urine Many /hpf; Nitrite,Urine Negative (Negative); Protein,Urine 1+ (Negative); RBC,Urine 11 /hpf (0-5); Specific Gravity,Urine 1.041 (1.001-1.035); Squamous Epithelial Cell,Urine 11 /hpf (0-4); Urobilinogen,Urine <2.0 mg/dL (<2.0); WBC,Urine 14 /hpf (0-5)
[2021-02-28] MEDS ORDERED: ONDANSETRON 4 MG/2 ML VIAL IVP STA (22:00)
[2021-02-28] MEDS ORDERED: SODIUM CHLORIDE 0.9% 1,000 ML IV STA (22:00)
[2021-02-28] MEDS ORDERED: ACETAMINOPHEN TAB 500 MG TAB PO STA (22:17)
[2021-02-28 22:29] LABS: Basophils % (A) 0 %; Eosinophils # (A) 0.2 k/uL (0-0.7); Eosinophils % (A) 3 %; HCT 42.5 % (34.0-46.0); HGB 14.2 gm/dL (11.4-16.0); Lymphocytes # (A) 1.7 k/uL (1.0-4.8); Lymphocytes % (A) 27 %; MCH 30.3 pg (25.0-35.0); MCHC 33.4 g/dL (31.0-37.0); MCV 90.7 fL (80.0-100.0); Mean Platelet Volume 7.1; Monocytes # (A) 0.5 k/uL (0-1.0); Monocytes % (A) 7 %; Neutrophils # (A) 3.8 k/uL (1.3-7.7); Neutrophils % (A) 60 %; Platelet Count 263 k/uL (150-450); RBC 4.68 m/uL (3.80-5.40); RDW 12.9 % (11.5-15.5); WBC 6.3 k/uL (3.8-10.6)
[2021-02-28 22:34] LABS: Appearance,Urine Cloudy (Clear); Bacteria,Urine Rare /hpf; Bilirubin,Urine Negative (Negative); Blood,Urine Moderate (Negative); Calcium Oxalate Crystals,Urine Many /hpf; Color,Urine Yellow; Glucose,Urine (UA) Negative (Negative); Ketones,Urine 1+ (Negative); Leukocyte Esterase,Urine Small (Negative); Mucus,Urine Many /hpf; Nitrite,Urine Negative (Negative); Protein,Urine 1+ (Negative); RBC,Urine 10 /hpf (0-5); Specific Gravity,Urine 1.042 (1.001-1.035); Squamous Epithelial Cell,Urine 10 /hpf (0-4); Urobilinogen,Urine <2.0 mg/dL (<2.0); WBC,Urine 15 /hpf (0-5)
[2021-02-28 22:39] LABS: ALT 28 U/L (4-34); AST 27 U/L (14-36); African American GFR (CKD) >90 (>60 ml/min/1.73 sqM); Albumin 4.2 g/dL (3.5-5.0); Alkaline Phosphatase 85 U/L (38-126); Amylase 60 U/L (30-110); Anion Gap 10 mmol/L; Blood Urea Nitrogen 14 mg/dL (7-17); Carbon Dioxide 26 mmol/L (22-30); Chloride 104 mmol/L (98-107); Glucose 94 mg/dL (74-99); Lipase 48 U/L (23-300); Non-African American GFR(CKD) >90 (>60 ml/min/1.73 sqM); Potassium 3.6 mmol/L (3.5-5.1); Sodium 140 mmol/L (137-145); Total Bilirubin 0.6 mg/dL (0.2-1.3); Total Protein 7.2 g/dL (6.3-8.2)
--- NOTE | 2021-02-28 22:56 | ED ---
General Adult HPI - General Chief complaint: Nausea/Vomiting/Diarrhea Stated complaint: dehydration Time Seen by Provider: 02/28/21 21:37 Source: patient, family Mode of arrival: ambulatory Limitations: no limitations - History of Present Illness Initial comments: This 30 presents to the emergency department with dull headache, fever, nausea, vomiting, diarrhea that began on Friday. Patient states she is here because she is worried that she has lost too much fluid. Patient states she only vomited on Friday and Friday and has not vomited since, however, instead she has been having diarrhea. Patient states she has been taking Tylenol for her headache which seems to help a little bit. Patient denies any chest pain, shortness of breath, cough, visual changes, hemoptysis, change in bowel or bladder. - Related Data Home Medications Medication Instructions Recorded Confirmed Omeprazole 20 mg PO HS 11/17/19 02/28/21 Escitalopram [Lexapro] 20 mg PO HS 02/28/21 02/28/21 Fhl-Ybyd-Xvejt Acid 1 cap PO HS 02/28/21 02/28/21 [-U Capsule (formulary)] Allergies Allergy/AdvReac Type Severity Reaction Status Date / Time No Known Allergies Allergy Verified 02/28/21 22:59 Review of Systems ROS Statement: Those systems with pertinent positive or pertinent negative responses have been documented in the HPI. ROS Other: All systems not noted in ROS Statement are negative. Past Medical History Additional Past Medical History / Comment(s): migraines anxiety and depression History of Any Multi-Drug Resistant Organisms: None Reported Past Surgical History: No Surgical Hx Reported Past Anesthesia/Blood Transfusion Reactions: No Reported Reaction Past Psychological History: Anxiety, Depression Smoking Status: Never smoker Past Alcohol Use History: None Reported Past Drug Use History: None Reported - Past Family History Mother History Unknown: Yes General Exam Limitations: no limitations General appearance: alert, in no apparent distress Head exam: Present: atraumatic, normocephalic, normal inspection Eye exam: Present: normal appearance, PERRL, EOMI. Absent: scleral icterus, conjunctival injection, periorbital swelling ENT exam: Present: normal exam, mucous membranes moist Neck exam: Present: normal inspection, full ROM Respiratory exam: Present: normal lung sounds bilaterally. Absent: respiratory distress, wheezes, rales, rhonchi, stridor Cardiovascular Exam: Present: regular rate, normal rhythm, normal heart sounds. Absent: systolic murmur, diastolic murmur, rubs, gallop, clicks GI/Abdominal exam: Present: soft, tenderness (Slightly tender to deep palpation diffusely ), normal bowel sounds. Absent: distended, guarding, rebound, rigid Extremities exam: Present: normal inspection, full ROM, normal capillary refill. Absent: tenderness, pedal edema, joint swelling, calf tenderness Back exam: Present: normal inspection. Absent: CVA tenderness (R), CVA tenderness (L) Neurological exam: Present: alert, oriented X3, CN II-XII intact Psychiatric exam: Present: normal affect, normal mood Skin exam: Present: warm, dry, intact, normal color. Absent: rash Course Vital Signs 02/28/21 19:33 Temperature 98.2 F Pulse Rate 70 Respiratory 22 Rate Blood Pressure 141/80 O2 Sat by Pulse 95 Oximetry Medical Decision Making - Medical Decision Making This 30% the emergency department with nausea, vomiting, diarrhea, headache that began on Friday. Covid and influenza negative. Labs all unremarkable. Urine negative for nitrates, RBC 11, WBC 14, squamous epithelial cells 11. After receiving nausea medication, fluid, and Tylenol, patient states she feels a lot better but does still have a slight headache. Motrin was given for discharge. Patient advised to follow-up with primary care provider in next 1-2 days. Patient agreeable to plan. Patient sent home in stable condition. Case discussed with Dr. Herrmann. - Lab Data Result diagrams: 02/28/21 22:21 02/28/21 22:21 Lab Results 02/28/21 02/28/21 02/28/21 Range/Units 19:48 19:48 19:48 WBC (3.8-10.6) k/uL RBC (3.80-5.40) m/uL Hgb (11.4-16.0) gm/dL Hct (34.0-46.0) % MCV (80.0-100.0) fL MCH (25.0-35.0) pg MCHC (31.0-37.0) g/dL RDW (11.5-15.5) % Plt Count (150-450) k/uL MPV Neutrophils % % Lymphocytes % % Monocytes % % Eosinophils % % Basophils % % Neutrophils # (1.3-7.7) k/uL Lymphocytes # (1.0-4.8) k/uL Monocytes # (0-1.0) k/uL Eosinophils # (0-0.7) k/uL Basophils # (0-0.2) k/uL Sodium (137-145) mmol/L Potassium (3.5-5.1) mmol/L Chloride (98-107) mmol/L Carbon Dioxide (22-30) mmol/L Anion Gap mmol/L BUN (7-17) mg/dL Creatinine (0.52-1.04) mg/dL Est GFR (CKD-EPI)AfAm (>60 ml/min/1.73 sqM) Est GFR (CKD-EPI)NonAf (>60 ml/min/1.73 sqM) Glucose (74-99) mg/dL Calcium (8.4-10.2) mg/dL Total Bilirubin (0.2-1.3) mg/dL AST (14-36) U/L ALT (4-34) U/L Alkaline Phosphatase (38-126) U/L Total Protein (6.3-8.2) g/dL Albumin (3.5-5.0) g/dL Amylase (30-110) U/L Lipase (23-300) U/L Urine Color Yellow Yellow Urine Appearance Cloudy H Cloudy H (Clear) Urine pH 6.0 6.0 (5.0-8.0) Ur Specific Coy 1.041 H 1.042 H (1.001-1.035) Urine Protein 1+ H 1+ H (Negative) Urine Glucose (UA) Negative Negative (Negative) Urine Ketones 1+ H 1+ H (Negative) Urine Blood Moderate H Moderate H (Negative) Urine Nitrite Negative Negative (Negative) Urine Bilirubin Negative Negative (Negative) Urine Urobilinogen <2.0 <2.0 (<2.0) mg/dL Ur Leukocyte Esterase Small H Small H (Negative) Urine RBC 11 H 10 H (0-5) /hpf Urine WBC 14 H 15 H (0-5) /hpf Ur Squamous Epith Cells 11 H 10 H (0-4) /hpf Calcium Oxalate Crystal Many H (None) /hpf Urine Bacteria Rare H Rare H (None) /hpf Urine Mucus Many H Many H (None) /hpf Urine HCG, Qual Not Detected (Not Detectd) Coronavirus (PCR) (Not Detectd) Influenza Type A RNA (Not Detectd) Influenza Type B (PCR) (Not Detectd) 02/28/21 02/28/21 02/28/21 Range/Units 19:54 22:21 22:21 WBC 6.3 (3.8-10.6) k/uL RBC 4.68 (3.80-5.40) m/uL Hgb 14.2 (11.4-16.0) gm/dL Hct 42.5 (34.0-46.0) % MCV 90.7 (80.0-100.0) fL MCH 30.3 (25.0-35.0) pg MCHC 33.4 (31.0-37.0) g/dL RDW 12.9 (11.5-15.5) % Plt Count 263 (150-450) k/uL MPV 7.1 Neutrophils % 60 % Lymphocytes % 27 % Monocytes % 7 % Eosinophils % 3 % Basophils % 0 % Neutrophils # 3.8 (1.3-7.7) k/uL Lymphocytes # 1.7 (1.0-4.8) k/uL Monocytes # 0.5 (0-1.0) k/uL Eosinophils # 0.2 (0-0.7) k/uL Basophils # 0.0 (0-0.2) k/uL Sodium 140 (137-145) mmol/L Potassium 3.6 (3.5-5.1) mmol/L Chloride 104 (98-107) mmol/L Carbon Dioxide 26 (22-30) mmol/L Anion Gap 10 mmol/L BUN 14 (7-17) mg/dL Creatinine 0.87 (0.52-1.04) mg/dL Est GFR (CKD-EPI)AfAm >90 (>60 ml/min/1.73 sqM) Est GFR (CKD-EPI)NonAf >90 (>60 ml/min/1.73 sqM) Glucose 94 (74-99) mg/dL Calcium 9.0 (8.4-10.2) mg/dL Total Bilirubin 0.6 (0.2-1.3) mg/dL AST 27 (14-36) U/L ALT 28 (4-34) U/L Alkaline Phosphatase 85 (38-126) U/L Total Protein 7.2 (6.3-8.2) g/dL Albumin 4.2 (3.5-5.0) g/dL Amylase 60 (30-110) U/L Lipase 48 (23-300) U/L Urine Color Urine Appearance (Clear) Urine pH (5.0-8.0) Ur Specific Coy (1.001-1.035) Urine Protein (Negative) Urine Glucose (UA) (Negative) Urine Ketones (Negative) Urine Blood (Negative) Urine Nitrite (Negative) Urine Bilirubin (Negative) Urine Urobilinogen (<2.0) mg/dL Ur Leukocyte Esterase (Negative) Urine RBC (0-5) /hpf Urine WBC (0-5) /hpf Ur Squamous Epith Cells (0-4) /hpf Calcium Oxalate Crystal (None) /hpf Urine Bacteria (None) /hpf Urine Mucus (None) /hpf Urine HCG, Qual (Not Detectd) Coronavirus (PCR) Not Detected (Not Detectd) Influenza Type A RNA (Not Detectd) Influenza Type B (PCR) (Not Detectd) 02/28/21 Range/Units 22:21 WBC (3.8-10.6) k/uL RBC (3.80-5.40) m/uL Hgb (11.4-16.0) gm/dL Hct (34.0-46.0) % MCV (80.0-100.0) fL MCH (25.0-35.0) pg MCHC (31.0-37.0) g/dL RDW (11.5-15.5) % Plt Count (150-450) k/uL MPV Neutrophils % % Lymphocytes % % Monocytes % % Eosinophils % % Basophils % % Neutrophils # (1.3-7.7) k/uL Lymphocytes # (1.0-4.8) k/uL Monocytes # (0-1.0) k/uL Eosinophils # (0-0.7) k/uL Basophils # (0-0.2) k/uL Sodium (137-145) mmol/L Potassium (3.5-5.1) mmol/L Chloride (98-107) mmol/L Carbon Dioxide (22-30) mmol/L Anion Gap mmol/L BUN (7-17) mg/dL Creatinine (0.52-1.04) mg/dL Est GFR (CKD-EPI)AfAm (>60 ml/min/1.73 sqM) Est GFR (CKD-EPI)NonAf (>60 ml/min/1.73 sqM) Glucose (74-99) mg/dL Calcium (8.4-10.2) mg/dL Total Bilirubin (0.2-1.3) mg/dL AST (14-36) U/L ALT (4-34) U/L Alkaline Phosphatase (38-126) U/L Total Protein (6.3-8.2) g/dL Albumin (3.5-5.0) g/dL Amylase (30-110) U/L Lipase (23-300) U/L Urine Color Urine Appearance (Clear) Urine pH (5.0-8.0) Ur Specific Coy (1.001-1.035) Urine Protein (Negative) Urine Glucose (UA) (Negative) Urine Ketones (Negative) Urine Blood (Negative) Urine Nitrite (Negative) Urine Bilirubin (Negative) Urine Urobilinogen (<2.0) mg/dL Ur Leukocyte Esterase (Negative) Urine RBC (0-5) /hpf Urine WBC (0-5) /hpf Ur Squamous Epith Cells (0-4) /hpf Calcium Oxalate Crystal (None) /hpf Urine Bacteria (None) /hpf Urine Mucus (None) /hpf Urine HCG, Qual (Not Detectd) Coronavirus (PCR) (Not Detectd) Influenza Type A RNA Not Detected (Not Detectd) Influenza Type B (PCR) Not Detected (Not Detectd) Disposition Clinical Impression: Nausea, Diarrhea Disposition: HOME SELF-CARE Condition: Stable Instructions (If sedation given, give patient instructions): Acute Nausea and Vomiting (ED), Acute Diarrhea (ED) Additional Instructions: Please return to the emergency department with any concerning, new, worsening symptoms. Please follow-up with primary care provider next 1-2 days. Is patient prescribed a controlled substance at d/c from ED?: No Referrals: Ankush Epperson MD [Primary Care Provider] - 1-2 days Time of Disposition: 23:42
[2021-02-28] MEDS ORDERED: IBUPROFEN 600 MG TAB PO STA (23:35)
== END 2021-03-01 00:05 | disposition home or self-care (01) ==
LOC: EC 18:18
DX: R11.0 Nausea (principal); R19.7 Diarrhea, unspecified; G43.909 Migraine, unspecified, not intractable, without status migrainosus; F41.9 Anxiety disorder, unspecified; F32.A Depression, unspecified
CPT/HCPCS: 36415; 80053; 82150; 83690; 85025; 81001; 81025; 87086; 87502; 87635; 99284; 96374; 96361; J2405

== ENCOUNTER → 2022-12-23 | Outpatient (CLI) | payer BC ==
--- NOTE | 2022-12-23 13:47 | US ---
EXAMINATION TYPE: US venous doppler duplex LE LT DATE OF EXAM: 12/23/2022 12:46 PM COMPARISON: NONE CLINICAL INDICATION: Female, 32 years old with history of LLE; M79.622; pain left leg SIDE PERFORMED: Left TECHNIQUE: The lower extremity deep venous system is examined utilizing real time linear array sonog bailee with graded compression, doppler sonography and color-flow sonography. VESSELS IMAGED: Common Femoral Vein Deep Femoral Vein Greater Saphenous Vein * Femoral Vein Popliteal Vein Small Saphenous Vein * Proximal Calf Veins (* superficial vessels) Left Leg: Negative for DVT IMPRESSION: 1. Left lower extremity ultrasound negative for deep venous thrombosis
== END | disposition home or self-care (01) ==
LOC: RADUSWWP 12:45
PROVIDERS: ATTEND Obstetrics & Gynecology Obstetrics
DX: M79.662 Pain in left lower leg (principal)

== ENCOUNTER 2023-01-01 15:58 | Outpatient (CLI) | payer BC ==
[2023-01-01] MEDS ORDERED: LACTATED RINGERS 1,000 ML IV ONE (16:33)
[2023-01-01] MEDS ORDERED: ACETAMINOPHEN IV (For NPO) 1,000 MG in EMPTY BAG 1 BAG IVPB ONE (16:37)
[2023-01-01 17:20] LABS: Appearance,Urine Turbid (Clear); Bacteria,Urine Many /hpf; Bilirubin,Urine Negative (Negative); Blood,Urine Negative (Negative); Color,Urine Light Yellow; Glucose,Urine (UA) Negative (Negative); Ketones,Urine Negative (Negative); Leukocyte Esterase,Urine Large (Negative); Mucus,Urine Rare /hpf; Nitrite,Urine Negative (Negative); PH, Urine 6.5 (5.0-8.0); Protein,Urine Negative (Negative); RBC,Urine 4 /hpf (0-5); Specific Gravity,Urine 1.015 (1.001-1.035); Squamous Epithelial Cell,Urine 6 /hpf (0-4); Urobilinogen,Urine <2.0 mg/dL (<2.0); WBC,Urine 18 /hpf (0-5)
[2023-01-01 17:35] LABS: ALT 27 U/L (4-34); AST 20 U/L (14-36); African American GFR (CKD) >90 (>60 ml/min/1.73 sqM); Blood Urea Nitrogen 8 mg/dL (7-17); LDH 156 U/L (120-246); Non-African American GFR(CKD) >90 (>60 ml/min/1.73 sqM); Uric Acid 4.8 mg/dL (3.7-7.4)
[2023-01-01 17:36] LABS: Basophils % (A) 0 %; Eosinophils # (A) 0.2 k/uL (0-0.7); Eosinophils % (A) 2 %; HCT 36.5 % (34.0-46.0); HGB 12.3 gm/dL (11.4-16.0); Lymphocytes % (A) 17 %; MCH 31.2 pg (25.0-35.0); MCHC 33.8 g/dL (31.0-37.0); MCV 92.1 fL (80.0-100.0); Mean Platelet Volume 7.7; Monocytes # (A) 0.4 k/uL (0-1.0); Monocytes % (A) 3 %; Neutrophils # (A) 9.1 k/uL (1.3-7.7); Neutrophils % (A) 77 %; Platelet Count 296 k/uL (150-450); RBC 3.96 m/uL (3.80-5.40); RDW 13.4 % (11.5-15.5); WBC 11.8 k/uL (3.8-10.6)
[2023-01-01 18:16] LABS: Protein/Creatinine Ratio,Urine 0.158
[2023-01-01 18:44] VITALS: BP 138/78; PULSE 78; RESP 16; TEMP 97.4
== END 2023-01-01 17:45 | disposition home or self-care (01) ==
LOC: FBPOP 15:58
PROVIDERS: ATTEND Obstetrics & Gynecology Obstetrics
DX: O26.893 Other specified pregnancy related conditions, third trimester (principal); R51.9 Headache, unspecified; Z3A.35 35 weeks gestation of pregnancy; Z79.82 Long term (current) use of aspirin
CPT/HCPCS: 59025; 99214; 96361; 96365; 36415; 82570; 84156; 82565; 83615; 84450; 84460; 84520; 84550; 85025; 81001; J0131

== ENCOUNTER 2023-01-15 09:39 | Outpatient (CLI) | payer BC ==
[2023-01-15 12:07] VITALS: BP 140/81; PULSE 86; RESP 17; TEMP 97.6
--- NOTE | 2023-03-10 16:16 | P.MSEPDOC ---
Presenting Problems - Arrival Data Date of Arrival on Unit: 01/15/23 Time of Arrival on Unit: 09:39 Mode of Transport: Ambulatory - Complaint OB-Reason for Admission/Chief Complaint: Possible Onset of Labor, Pain Comment: pt presents to triage for contractions and cramping with pressure yesterday morning, rating pain 6-7/10, not consistent Medical History - Information : 2 Para: 1 Term: 1 : 0 Abortions: Spontaneous or Elective: 0 Number of Living Children: 1 - Gestational Age Gestational Age by MOSES (wks/days): 37 Weeks and 4 Days - History Complications: Prior Review of Systems - Review of Systems Constitutional: No problems Breast: No problems ENT: No problems Cardiovascular: No problems Respiratory: No problems Gastrointestinal: No problems Genitourinary: No problems Musculoskeletal: No problems Neurological: No problems Skin: No problems Vital Signs - Temperature Temperature: 97.6 F Temperature Source: Temporal Artery Scan - Pulse Right Brachial Pulse Rate: 86 Pulse Assessment Method: Automatic Cuff - Respirations Respiratory Rate: 17 Oxygen Delivery Method: Room Air - Blood Pressure Right Arm Blood Pressure: 140/81 Blood Pressure Mean: 100 Blood Pressure Source: Automatic Cuff Medical Screen Scoring - Cervical Exam Dilation (cm): 1.5 Effacement (%): 50 Station: -3 Membranes: Intact - Uterine Contractions Intensity: Mild Resting: Soft to palpation - Assessment - Baby A Baseline FHR: 140 Heart Rate - NICHD Category: Category I (Normal) NST: Reactive Physician Notification - Physician Notified Physician Notified Date: 01/15/23 Physician Notified Time: 10:19 Physician: Esperanza Elizondo New Order Received: Yes Maternal Triage Index - Maternal Triage Index Presenting for scheduled procedure w/no complaint: No - Stat/Priority 1 Stat Priority 1: No - Urgent/Priority 2 Urgent Priority 2: No - Prompt/Priority 3 Prompt Priority 3: Yes Criteria Met for Priority 3: pt presents to triage for contractions and cramping with pressure yesterday morning, rating pain 6-7/10, not consistent Disposition - Disposition OB Disposition: Triage, Discharge to home, Written follow up instructions revi ewed Discharge Date: 01/15/23 Discharge Time: 11:25 I agree with the RN Medical Screening Exam: Yes Case reviewed; plan agreed upon as documented in EMR&OBIX.: Yes Diagnosis: FALSE LABOR AT OR AFTER 37 COMPLETED WEEKS OF GESTATION
== END 2023-01-15 11:25 | disposition home or self-care (01) ==
LOC: FBPOP 09:39
PROVIDERS: ATTEND Obstetrics & Gynecology Obstetrics
DX: O47.1 False labor at or after 37 completed weeks of gestation (principal); Z3A.37 37 weeks gestation of pregnancy
CPT/HCPCS: 59025; 99213

== ENCOUNTER 2023-01-28 08:10 | Inpatient (IN) | payer BC ==
[2023-01-23 11:27] VITALS: BMI 42.2
[2023-01-28] MEDS ORDERED: TRANEXAMIC 1,000 MG/100ML-NACL 1,000 MG in EMPTY BAG 1 BAG IV PRN (08:42)
[2023-01-28] MEDS ORDERED: miSOPROStoL 200 MCG TAB PO PRN (08:42)
[2023-01-28] MEDS ORDERED: CARBOPROST TROMETHAMINE 250 MCG/ML 1 ML AMP IM PRN (08:42)
[2023-01-28] MEDS ORDERED: METHYLERGONOVINE 0.2 MG/ML 1 ML AMP IM PRN (08:42)
[2023-01-28] MEDS ORDERED: OXYTOCIN 10 UNIT/ML 1 ML VIAL IM PRN (08:42)
[2023-01-28] MEDS ORDERED: CITRIC ACID-SODIUM CITRATE 15 ML CUP PO ONE (08:42)
[2023-01-28 09:08] LABS: Basophils % (A) 0 %; Eosinophils # (A) 0.2 k/uL (0-0.7); Eosinophils % (A) 1 %; HCT 36.6 % (34.0-46.0); HGB 12.5 gm/dL (11.4-16.0); Lymphocytes # (A) 1.5 k/uL (1.0-4.8); Lymphocytes % (A) 13 %; MCH 31.7 pg (25.0-35.0); MCHC 34.2 g/dL (31.0-37.0); MCV 92.7 fL (80.0-100.0); Mean Platelet Volume 8.1; Monocytes # (A) 0.3 k/uL (0-1.0); Monocytes % (A) 3 %; Neutrophils # (A) 8.9 k/uL (1.3-7.7); Neutrophils % (A) 81 %; Platelet Count 274 k/uL (150-450); RBC 3.95 m/uL (3.80-5.40); RDW 13.7 % (11.5-15.5)
[2023-01-28] MEDS ORDERED: MORPHINE SULFATE (PF) 0.3 MG/0.3 ML SYR ONE (10:05)
[2023-01-28] MEDS ORDERED: ONDANSETRON 4 MG/2 ML VIAL ONE (10:05)
[2023-01-28] MEDS ORDERED: MIDAZOLAM 2 MG/2 ML VIAL ONE (10:05)
[2023-01-28] MEDS ORDERED: ePHEDrine 50 MG/ML 1 ML VIAL ONE (10:05)
[2023-01-28] MEDS ORDERED: OXYTOCIN 30 UNITS/500 ML NS BAG IV ONE (10:05)
--- NOTE | 2023-01-28 11:01 | P.HPOB ---
History of Present Illness H&P Date: 01/28/23 Chief Complaint: IUP at 39 weeks, history of primary 32-year-old at 39 weeks of gestation that presents to labor and delivery for scheduled repeat section. Patient has a primary for arrest of descent with her last . Patient has been receiving routine care which is been essentially uncomplicated. She does struggle with anxiety and this has been addressed through the . Patient notes good movement this morning denies contractions vaginal bleeding or loss of fluid. Patient has a noted blood type of O pos, rubella immune, HBSag, HIV neg, RPR NR Review of Systems Constitutional: Denies chills, Denies fatigue, Denies fever Ears, nose, mouth and throat: Denies headache Cardiovascular: Reports edema Respiratory: Denies dyspnea Gastrointestinal: Denies nausea, Denies vomiting Genitourinary: Reports Past Medical History Past Medical History: GERD/Reflux Additional Past Medical History / Comment(s): migraines History of Any Multi-Drug Resistant Organisms: None Reported Past Surgical History: Section, Cholecystectomy Past Anesthesia/Blood Transfusion Reactions: No Reported Reaction Past Psychological History: Anxiety, Depression Smoking Status: Never smoker Past Alcohol Use History: None Reported Past Drug Use History: None Reported - Past Family History Mother History Unknown: Yes Medications and Allergies Home Medications Medication Instructions Recorded Confirmed Type Omeprazole 20 mg PO HS 11/17/19 01/28/23 History Gqz-Dqqs-Ldpza Acid 1 cap PO HS 02/28/21 01/28/23 History [-U Capsule (formulary)] Aspirin [Adult Low Dose Aspirin EC] 81 mg PO DAILY 01/15/23 01/28/23 History Sertraline HCl [Sertraline HCl 20 mg PO DAILY 01/15/23 01/28/23 History Oral Conc] Cholecalciferol [Vitamin D3 (25 25 mcg PO DAILY 01/23/23 01/28/23 History Mcg = 1000 Iu)] Allergies Allergy/AdvReac Type Severity Reaction Status Date / Time No Known Allergies Allergy Verified 01/28/23 08:40 Exam Osteopathic Statement: *. No significant issues noted on an osteopathic structural exam other than those noted in the History and Physical/Consult. 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 Results Result Diagrams: 01/28/23 09:02 Abnormal Lab Results - Last 24 Hours (Table) 01/28/23 Range/Units 09:02 WBC 11.0 H (3.8-10.6) k/uL Neutrophils # 8.9 H (1.3-7.7) k/uL Assessment and Plan (1) H/O section Current Visit: Yes Status: Acute Code(s): Z98.891 - HISTORY OF UTERINE SCAR FROM PREVIOUS SURGERY SNOMED Code(s): 255233930 (2) Term Current Visit: No Status: Acute Code(s): Z34.90 - ENCNTR FOR SUPRVSN OF NOR MAL , UNSP, UNSP TRIMESTER SNOMED Code(s): 32650149 Plan: 32-year-old at 39 weeks of that presents for repeat section. Patient has been counseled on surgery and questions have been answered. Risks are reviewed including but not limited to infection, bleeding, damage to bladder, bowel, injury. Patient states understanding and wishes to proceed.
--- NOTE | 2023-01-28 11:06 | P.OP ---
Date of Procedure: 01/28/23 Preoperative Diagnosis: P at 39 weeks, history of 1, desires repeat Postoperative Diagnosis: Same plus meconium-stained fluid Procedure(s) Performed: Repeat section Anesthesia: spinal Surgeon: Esperanza Elizondo Radiographer Cardiac Catheterization #1: Mick Morales Estimated Blood Loss (ml): 200 IV fluids (ml): 1,000 Urine output (ml): 100 Pathology: other (Placenta) Condition: stable Disposition: observation Indications for Procedure: 32-year-old at 39 weeks presents for repeat section. Patient has a prior history of a secondary to arrest of descent. Operative Findings: Viable male delivered at 1027, weight of 7 lbs. 9 oz., Apgars of 8 and 9 at one and 5 minutes respectively. Normal ovaries tubes and uterus were appreciated Description of Procedure: The patient was prepped and draped in the usual fashion after spinal anesthesia was administered by the anesthesia department. A Pfannenstiel incision was made and extended of the abdominal cavity without difficulty. The bladder peritoneum was elevated and incised and reflected distally. A 2 cm incision was made in the transverse plane of the lower uterine segment to enter the uterus at which time clear fluid was noted. The incision was extended in both directions using the bandage scissors. The head was encountered within the field and deliv ered up and through the incision where the nose and mouth were thoroughly suctioned. Remainder of the was delivered onto the surgical field where the cord was doubly clamped, cut, and the infant was passed for resuscitative measures with weight and Apgars as noted above. A segment of cord was then doubly clamped, cut, and set aside should cord gases become necessary. The placenta was delivered manually, intact, and was grossly normal with a grossly normal three-vessel cord. The uterus was exteriorized and the interior cavity of the uterus swept of any remaining placental and membranous fragments with a laparotomy sponge. The margins of the incision were grasped with Allis clamps and the incision closed in 2 layers. First layer was a running locking layer of 0 chromic catgut from margin to margin followed by a second layer of imbricating 0 chromic catgut from margin to margin. Any small points of bleeding were then made hemostatic with the Bovie. Once hemostasis was achieved, the posterior cul-de-sac was suctioned with a guard and the uterine and ovarian findings are as noted above. The uterus was replaced within the abdominal cavity and the gutters swept of any remaining blood fluid or clot. The incision was again reexamined and hemostasis was noted to be excellent. Any small point of bleeding were made hemostatic with the Bovie. Once hemostasis was achieved the parietal peritoneum was loosely reapproximated. The layer of muscles were examined and made hemostatic with the Bovie. Attention was then turned to the fascia which was closed with 2 running stitches of 0 Vicryl proceeding from the lateral margins to the midpoint. The subcutaneous tissues were irrigated, made hemostatic with the Bovie, and reapproximated with a running stitch of 30 Vicryl. The skin was reapproximated with 4-0 Vicryl. Estimated blood loss for the case was approximately 200 mL. All sponge instrument and needle counts are correct. There were no complications. The patient tolerated the procedure well and proceeded to the recovery room in stable condition. Both mother and infant are resting comfortably in recovery.
[2023-01-28] MEDS ORDERED: ONDANSETRON 4 MG/2 ML VIAL IVP PRN (11:41)
[2023-01-28] MEDS ORDERED: ZOLPIDEM 5 MG TAB PO PRN (11:41)
[2023-01-28] MEDS ORDERED: SIMETHICONE 80 MG CHEWABLE PO PRN (11:41)
[2023-01-28] MEDS ORDERED: NALOXONE 0.4 MG/ML 1 ML VIAL IV PRN (11:41)
[2023-01-28] MEDS ORDERED: diphenhydrAMINE 50 MG CAP PO PRN (11:41)
[2023-01-28] MEDS ORDERED: diphenhydrAMINE 50 MG/ML 1 ML VIAL IVP PRN ×2 (11:41)
[2023-01-28] MEDS ORDERED: METOCLOPRAMIDE 5 MG/ML 2 ML VIAL IVP PRN (11:41)
[2023-01-28] MEDS ORDERED: diphenhydrAMINE 25 MG CAP PO PRN (11:41)
[2023-01-28] MEDS: LACTATED RINGERS 1,000 ML IV SCH ×2 (12:05→23:30)
[2023-01-28] MEDS: ACETAMINOPHEN IV (For NPO) 1,000 MG in EMPTY BAG 1 BAG IVPB SCH (12:08)
[2023-01-28] MEDS: IBUPROFEN 600 MG TAB PO SCH ×2 (16:49→23:12)
[2023-01-28] MEDS: ACETAMINOPHEN TAB 500 MG TAB PO SCH ×2 (16:55→20:49)
[2023-01-28] MEDS: IBUPROFEN IV 800 MG in SODIUM CHLORIDE 0.9% 250 ML IV SCH (20:46)
[2023-01-28] MEDS: SENNOSIDES-DOCUSATE SODIUM 1 EACH TAB PO SCH (20:49)
[2023-01-29] MEDS: ACETAMINOPHEN IV (For NPO) 1,000 MG in EMPTY BAG 1 BAG IVPB SCH (04:50)
[2023-01-29] MEDS: ACETAMINOPHEN TAB 500 MG TAB PO SCH ×4 (04:57→18:31)
[2023-01-29] MEDS: IBUPROFEN IV 800 MG in SODIUM CHLORIDE 0.9% 250 ML IV SCH ×3 (05:30→23:40)
--- NOTE | 2023-01-29 06:24 | P.PN ---
Progress Note - Text Progress Note Date: 01/29/23 POD 1 from C section with duramorph spinal. Reports good pain control, 2/ this morning, able to ambulate. Reports difficulty with Micturation, has been able to urinate but not effectively. No loss of sensation, saddle anesthesia or lower ext weakness. She will continue trying. Mild pruritis as well. Please ensure bladder is empty prior to discharge and that there is adequete bladder control. Call anesthesia for evaluation if there is any concern please. Mendy Hitchcock MD.
[2023-01-29] MEDS: IBUPROFEN 600 MG TAB PO SCH ×4 (07:07→22:54)
[2023-01-29 07:37] LABS: Basophils # (A) 0.1 k/uL (0-0.2); Basophils % (A) 1 %; Eosinophils # (A) 0.1 k/uL (0-0.7); Eosinophils % (A) 1 %; HGB 11.1 gm/dL (11.4-16.0); Lymphocytes # (A) 1.7 k/uL (1.0-4.8); Lymphocytes % (A) 13 %; MCH 31.5 pg (25.0-35.0); MCHC 33.7 g/dL (31.0-37.0); MCV 93.3 fL (80.0-100.0); Mean Platelet Volume 8.7; Monocytes # (A) 0.3 k/uL (0-1.0); Monocytes % (A) 3 %; Neutrophils # (A) 10.1 k/uL (1.3-7.7); Neutrophils % (A) 82 %; Platelet Count 221 k/uL (150-450); RBC 3.54 m/uL (3.80-5.40); WBC 12.3 k/uL (3.8-10.6)
--- NOTE | 2023-01-29 12:24 | P.PNOBGPC ---
Subjective - Subjective Principal diagnosis: POD 1 RCS Interval history: Patient is doing well postoperatively. Patient has voided twice since Costa was discontinued. Lochia is minimal. Positive flatus and is tolerating a regular diet without nausea or vomiting. Pain is well-controlled. Breast-feeding going well. Patient reports: Reports appetite normal, Reports voiding normally, Reports pain well controlled, Reports ambulating normally : doing well, nursing well Objective - Vital Signs Latest vital signs: Vital Signs Temp Pulse Resp BP Pulse Ox 01/29/23 08:00 98.1 F 65 16 116/71 99 01/29/23 04:00 97.8 F 73 19 136/79 99 01/29/23 00:00 97.8 F 60 19 116/68 98 01/28/23 20:00 98.0 F 62 15 123/69 100 01/28/23 16:00 98.3 F 68 16 113/74 98 01/28/23 13:00 98.1 F 77 16 123/61 01/28/23 12:30 98.1 F 77 16 125/72 Intake and Output 01/28/23 01/29/23 01/29/23 22:59 06:59 14:59 Intake Total 960 Output Total 295 745 5639 Balance 360 -500 -1000 Intake: Oral 960 Output: Urine 014 176 0383 Uretheral (Costa) 200 Other: # Voids 1 - Exam Extremities: Present: normal, edema Abdomen: Present: normal appearance, soft Incision: Present: normal, dry, intact Uterus: Present: normal, firm - Labs Labs: Abnormal Lab Results - Last 24 Hours (Table) 01/29/23 Range/Units 07:07 WBC 12.3 H (3.8-10.6) k/uL RBC 3.54 L (3.80-5.40) m/uL Hgb 11.1 L (11.4-16.0) gm/dL Hct 33.0 L (34.0-46.0) % Neutrophils # 10.1 H (1.3-7.7) k/uL Assessment and Plan (1) H/O section Current Visit: Yes Status: Acute Code(s): Z98.891 - HISTORY OF UTERINE SCAR FROM PREVIOUS SURGERY SNOMED Code(s): 501164492 (2) Term Current Visit: No Status: Acute Code(s): Z34.90 - ENCNTR FOR SUPRVSN OF NORMAL , UNSP, UNSP TRIMESTER SNOMED Code(s): 12057471 (3) S/P section Current Visit: No Status: Acute Code(s): Z98.891 - HISTORY OF UTERINE SCAR FROM PREVIOUS SURGERY SNOMED Code(s): 772681954 (4) Thick meconium stained amniotic fluid Current Visit: No Status: Acute Code(s): P96.83 - MECONIUM STAINING SNOMED Code(s): 436028268 Plan: Patient is doing well postoperatively. We will continue routine postoperative care and anticipate discharge home tomorrow.
[2023-01-29] MEDS: LACTATED RINGERS 1,000 ML IV SCH (12:49)
[2023-01-29] MEDS: SENNOSIDES-DOCUSATE SODIUM 1 EACH TAB PO SCH ×2 (12:50→19:34)
[2023-01-30] MEDS: ACETAMINOPHEN TAB 500 MG TAB PO SCH ×2 (00:06→07:20)
[2023-01-30 00:33] VITALS: RESP 16
[2023-01-30] MEDS: IBUPROFEN 600 MG TAB PO SCH ×2 (05:16→10:35)
[2023-01-30] MEDS: SENNOSIDES-DOCUSATE SODIUM 1 EACH TAB PO SCH (07:20)
[2023-01-30 07:55] VITALS: BP 110/68; PULSE 63; TEMP 97.7
--- NOTE | 2023-01-30 08:42 | P.DS ---
Providers Date of admission: 01/28/23 08:10 Expected date of discharge: 01/30/23 Attending physician: Esperanza Elizondo Primary care physician: Stated None - Discharge Diagnosis(es) (1) H/O section Current Visit: Yes Status: Acute (2) Term Current Visit: No Status: Acute (3) S/P section Current Visit: No Status: Acute (4) Thick meconium stained amniotic fluid Current Visit: No Status: Acute Hospital Course: This is a 32-year-old G2 now P2 status post repeat . Patient had been receiving routine care which has been essentially uncomplicated. Patient does struggle with significant anxiety which has been controlled. Patient was admitted to labor and delivery and repeat section was performed without difficulty. For full details on the please see the operative report. Patient delivered a viable male at 1027 on 01/28, weight of 7 lbs. 9 oz., Apgars of 8 and 9 at one and 5 minutes respectively. Patient has done well post operatively. On this postoperative day #2 she is ambulating and voiding without difficulty. She is tolerating a regular diet without nausea or vomiting. She states her pain is well-controlled. Her lochia is minimal. She is breast- feeding without difficulty. She is requesting discharge home. Patient Condition at Discharge: Good Plan - Discharge Summary Discharge Rx Participant: No New Discharge Prescriptions: No Action Omeprazole 20 mg PO HS [id number] Acid [-U Capsule (formulary)] 1 cap PO HS Sertraline HCl [Sertraline HCl Oral Conc] 20 mg PO DAILY Cholecalciferol [Vitamin D3 (25 Mcg = 1000 Iu)] 25 mcg PO DAILY Aspirin [Adult Low Dose Aspirin EC] 81 mg PO DAILY Discharge Medication List Omeprazole 20 mg PO HS 11/17/19 [History] [id number] Acid [-U Capsule (formulary)] 1 cap PO HS 02/28/21 [History] Aspirin [Adult Low Dose Aspirin EC] 81 mg PO DAILY 01/15/23 [History] Sertraline HCl [Sertraline HCl Oral Conc] 20 mg PO DAILY 01/15/23 [History] Cholecalciferol [Vitamin D3 (25 Mcg = 1000 Iu)] 25 mcg PO DAILY 01/23/23 [History] Follow up Appointment(s)/Referral(s): Esperanza Elizondo DO [Doctor of Osteopathic Medicine] - 2 Weeks Patient Instructions/Handouts: (DC), (GEN) Activity/Diet/Wound Care/Special Instructions: No tub baths or intercourse until 6 weeks post operatively. She is to call the office and make a routine postoperative appointment for 2 weeks. [id number] ibuprofen and Tylenol are discussed her pain control. Patient is to call the office should she make concerns prior to her postoperative appointment. Discharge Disposition: HOME SELF-CARE
== END 2023-01-30 11:00 | disposition home or self-care (01) | DRG 788 ==
LOC: 4FBP 08:10
PROVIDERS: ADMIT Obstetrics & Gynecology Obstetrics; ATTEND Obstetrics & Gynecology Obstetrics
PROC: 10D00Z1 Extraction of Products of Conception, Low, Open Approach (ICD-10-PCS; principal; 2023-01-28 10:00)
DX: O34.211 Maternal care for low transverse scar from previous cesarean delivery (principal); F32.A Depression, unspecified; F41.9 Anxiety disorder, unspecified; L29.9 Pruritus, unspecified; O77.0 Labor and delivery complicated by meconium in amniotic fluid; O99.344 Other mental disorders complicating childbirth; Z37.0 Single live birth; Z3A.39 39 weeks gestation of pregnancy; Z79.82 Long term (current) use of aspirin
CPT/HCPCS: 85025; 86850; 86900; 86901